=== PATIENT | male | born 1990 ===

== ENCOUNTER 2024-08-02 02:22 | Emergency (ER) | payer OTHER ==
[2024-08-02 04:18] LABS: #Basophils 0.04 10x3/uL (0.0-0.2); #Eosinophils 0.31 10x3/uL (0.0-0.5); #Monocytes 0.59 10x3/uL (0.0-1.1); #Neutrophils 5.39 10x3/uL (1.5-8.4); %Basophils 0.5 % (0.0-2.0); %Eosinophils 3.5 % (0.0-6.0); %Lymphocytes 28.1 % (18.0-47.0); %Monocytes 6.7 % (0.0-10.0); Hematocrit 36.6 % (38.8-50.0); Hemoglobin 12.8 g/dL (13.5-17.5); Mean Corpuscular Hemoglobin 31.2 pg (27.0-33.0); Mean Corpuscular Volume 89.3 fL (81.2-95.1); Mean Platelet Volume 9.5 fL (7.4-10.4); Platelet Count 244 10x3/uL (150-450); RBC Distribution Width 12.9 % (11.5-14.5); White Blood Cell (WBC) Count 8.83 10x3/uL (3.5-10.5)
[2024-08-02 04:31] LABS: PTT 26.5 sec (22.0-33.0); Prothrombin Time 10.7 sec (9.5-12.1)
[2024-08-02 04:37] LABS: ALT (SGPT) 20 U/L (Less than 45); AST (SGOT) 27 U/L (11-34); Albumin 3.9 g/dL (3.1-4.5); Alkaline Phosphatase 80 U/L (40-110); Anion Gap 14 mmol/L (10-20); BUN (Urea Nitrogen) 16 mg/dL (8.9-20.6); Bilirubin, Total 0.3 mg/dL (0.3-1.2); Calc. Creatinine Clearance 0 mL/min (70-130); Calcium 9.1 mg/dL (7.8-10.44); Carbon Dioxide 19 mmol/L (22-29); Chloride 110 mmol/L (98-107); Estimated GFR 98; Globulin 2.9 g/dL (2.4-3.5); Glucose 102 mg/dL (70-105); Potassium 3.8 mmol/L (3.5-5.1); Protein, Total 6.8 g/dL (6.0-8.3); Sodium 139 mmol/L (136-145)
== END 2024-08-02 05:07 ==
LOC: EEVIPCON 02:22 → CSHERS 02:22
DX: S30.821A Blister (nonthermal) of abdominal wall, initial encounter (principal); Z93.2 Ileostomy status; X58.XXXA Exposure to other specified factors, initial encounter
CPT/HCPCS: 80053; 85025; 85610; 85730; 99283